=== PATIENT | male | born 1975 | race Caucasian/White ===

== ENCOUNTER 2019-11-24 12:54 | Emergency (ER) | payer OTHER ==
[~2019-11-24] VITALS: Ht 182.9 cm; Wt 80.0 kg
[2019-11-24 13:04] VITALS: BP 131/80
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
[2019-11-24] MEDS ORDERED: MORPHINE SULFATE 4 MG/ML, 1ML ONE (13:14)
[2019-11-24] MEDS ORDERED: ONDANSETRON 2MG/ML, 2ML ONE (13:14)
[2019-11-24] MEDS ORDERED: ONDANSETRON 2MG/ML, 2ML IVPush ONE (13:30)
[2019-11-24] MEDS ORDERED: MORPHINE SULFATE 4 MG/ML, 1ML IVPush PRN (13:30)
[2019-11-24] MEDS ORDERED: SODIUM CHLORIDE FLUSH 10ML SYR IVF ONE (13:30)
== END 2019-11-24 14:38 | disposition home or self-care (01) ==
LOC: ED 14:06
DX: S80.11XA Contusion of right lower leg, initial encounter (principal); R55 Syncope and collapse; X58.XXXA Exposure to other specified factors, initial encounter; Y93.89 Activity, other specified; Y92.328 Other athletic field as the place of occurrence of the external cause; Y99.8 Other external cause status
CPT/HCPCS: 73590; 73610; 96374; 96375; 99284; J2270; J2405